=== PATIENT | female | born 1990 | race Caucasian/White ===

== ENCOUNTER 2017-06-14 13:52 | Emergency (ER) | payer BC ==
[~2017-06-14] VITALS: Ht 162.6 cm; Wt 72.3 kg
[~2017-06-14 13:52] MED LIST: AZO; BACTRIM 400 MG-1 TAB PO; LEVAQUIN 5500 MG/TAB PO; PYRIDIUM 100MG100 MG PO
[2017-06-14 13:56] VITALS: TEMP 98.8
[2017-06-14 14:42] LABS: BASO # 0.1 (0.0-0.2); BASO % 0.6 % (0.0-2.0); EOS # 0.1 (0.0-0.7); EOS % 1.4 % (0-4.0); GRAN # 6.1 (1.4-6.5); GRAN % 73.5 % (42.2-75.2); HEMATOCRIT 40.3 % (37.0-47.0); HEMOGLOBIN 13.3 g/dl (12.5-16.0); LYMPH # 1.5 (1.2-3.4); LYMPH % 18.3 % (20.0-51.0); MEAN CELL VOLUME 89 fl (80.0-100.0); MEAN CORPUSCULAR HEMOGLOBIN 29 pg (27.0-31.0); MEAN CORPUSCULAR HGB CONC 33 g/dl (33.0-37.0); MEAN PLATELET VOLUME 9.9 fl (7.4-10.4); MONO # 0.5 (0.1-0.6); MONO % 5.8 % (1.7-9.3); PLATELET COUNT 186 K/mm3 (130-400); RED BLOOD COUNT 4.54 M/mm3 (4.10-5.30); REDCELL DISTRIBUTION WIDTH-CV 12.4 % (11.5-14.5)
[2017-06-14 15:00] LABS: ALBUMIN 4.8 gm/dL (3.5-5.0); BILIRUBIN,TOTAL 0.3 mg/dL (0.0-1.0); CALCIUM 9.7 mg/dL (8.4-10.2); CREATININE, serum 0.72 mg/dL (0.52-1.25); POTASSIUM 3.8 mmol/L (3.4-5.0); TOTAL PROTEIN 7.9 gm/dL (6.4-8.2)
[2017-06-14 18:20] VITALS: BP 134/64; PULSE 79
== END 2017-06-14 18:30 | disposition home or self-care (01) ==
LOC: COL.ER 13:52
PROVIDERS: Physician Assistant
DX: O20.0 Threatened abortion (principal); Z3A.01 Less than 8 weeks gestation of pregnancy
CPT/HCPCS: J2791

== ENCOUNTER 2020-10-31 05:40 | Inpatient (IN) | payer BC ==
[2020-10-31] VITALS (41 sets, daily range): BP systolic 87–149; BP diastolic 43–98; PULSE 70–110; TEMP 97.5–98.9
[~2020-10-31] VITALS: Ht 165.1 cm; Wt 98.2 kg
[2020-10-31] MEDS ORDERED: PROAIR HFA0.09 MG/AC IH (05:59)
[2020-10-31] MEDS ORDERED: PRENATAL TABLET PO (06:00)
--- NOTE | 2020-10-31 06:31 | NUR ---
Note upon initial entrance to room, patient lying flat on back. Repositioned to left lateral, with explanation to patient et spouse of late decelerations, and importance of not laying flat on back. Verbalize understanding.
[2020-10-31 06:37] LABS: BASO % 0.4 % (0.0-2.0); EOS # 0.1 (0.0-0.7); EOS % 1.3 % (0-4.0); GRAN # 7.5 (1.4-6.5); GRAN % 78.6 % (42.2-75.2); HEMOGLOBIN 12.3 g/dl (12.5-16.0); LYMPH # 1.2 (1.2-3.4); LYMPH % 12.1 % (20.0-51.0); MEAN CELL VOLUME 90 fl (80.0-100.0); MEAN CORPUSCULAR HEMOGLOBIN 31 pg (27.0-31.0); MEAN CORPUSCULAR HGB CONC 34 g/dl (33.0-37.0); MONO # 0.6 (0.1-0.6); MONO % 6.6 % (1.7-9.3); PLATELET COUNT 151 K/mm3 (130-400); RED BLOOD COUNT 3.99 M/mm3 (4.10-5.30); REDCELL DISTRIBUTION WIDTH-CV 13.2 % (11.5-14.5)
--- NOTE | 2020-10-31 07:15 | NUR ---
Pit start @ 2mU/min per physician's verbal order.
--- NOTE | 2020-10-31 08:45 | NUR ---
EFM TRACING MATERNAL HEART RATE FROM 0842 TO 0845 WHILE PATIENT SITTING UP AT EDGE OF BED FOR EPIDURAL PLACEMENT
--- NOTE | 2020-10-31 10:15 | NUR ---
Repositioned to left lateral with peanut ball, after round of late decelerations. Note hypotensive in comparison to pre-epidural. Ephedrine 10mg IVP administered. See e-MAR for time details.
--- NOTE | 2020-10-31 10:45 | NUR ---
Repositioned to sitting upright in naveed position.
--- NOTE | 2020-10-31 11:40 | NUR ---
Report from Barbara Ramirez RN and care of patient assumed.
--- NOTE | 2020-10-31 12:00 | NUR ---
Dr. Plascencia at bedside. SVE unchanged. Decision to continue repositioning. 1203- Patient repositioned LL with peanut ball. Prolonged FHR deceleration noted following repositioning, patient repositioned RL and FHR recovers. Physician remains on unit. Peanut ball replaced.
--- NOTE | 2020-10-31 13:00 | NUR ---
Dr. Plascencia at bedside. SVE unchanged. Discussing plan of care, decision for section. Pitocin discontinued and patient prepped for surgery. Abdominal shave and prep completed per protocol. 1309- Patient taken off EFM and taken to OR. See intraoperative report.
[2020-10-31] MEDS ORDERED: MOTRIN 800800 MG/TAB PO (18:07)
[2020-10-31] MEDS ORDERED: PERCOCET 325 MG1 TA2 PO (18:07)
[2020-11-01 00:35] VITALS: BP 134/88; PULSE 86; TEMP 98
[2020-11-01 09:50] VITALS: BP 131/80; PULSE 93; TEMP 97.8
--- NOTE | 2020-11-01 09:50 | NUR ---
Requests to take a shower. Bathroom set up with instruction to sit on bench while in shower until it is time to rinse off, as lightheadedness is common first time in shower. Discussed emergency pull cord. Verbalizes understanding. Instruction to saturate dressing completely before beginning to remove. Verbalizes understanding.
[2020-11-01 13:00] VITALS: BP 132/80; PULSE 99; TEMP 98.4
[2020-11-01 17:35] VITALS: BP 129/83; PULSE 82; TEMP 98.4
--- NOTE | 2020-11-01 18:35 | NUR ---
Report recieved. Just finished feeding infant. Plans to walk in the halls. Updated whiteboard and reviewed POC. Questions invited and answered.
[2020-11-01 20:30] VITALS: BP 128/86; PULSE 91; TEMP 98.5
[2020-11-02 07:11] VITALS: BP 126/71; PULSE 87; TEMP 98.2
[2020-11-02] MEDS ORDERED: MOTRIN 800800 MG/TAB PO (09:07)
[2020-11-02] MEDS ORDERED: PERCOCET 325 MG1 TA2 PO (09:07)
== END 2020-11-02 11:05 | disposition home or self-care (01) | DRG 788 ==
LOC: LDRO 05:40 → LDR 06:06 → OB 14:34
PROVIDERS: Obstetrics & Gynecology; ADMIT Obstetrics & Gynecology
PROC: 10D00Z1 Extraction of Products of Conception, Low, Open Approach (ICD-10-PCS; principal; 2020-10-31)
DX: O62.1 Secondary uterine inertia (principal); O99.284 Endocrine, nutritional and metabolic diseases complicating childbirth; O99.824 Streptococcus B carrier state complicating childbirth; O99.52 Diseases of the respiratory system complicating childbirth; O48.0 Post-term pregnancy; E28.2 Polycystic ovarian syndrome; Z3A.40 40 weeks gestation of pregnancy; Z37.0 Single live birth; J45.909 Unspecified asthma, uncomplicated; O26.893 Other specified pregnancy related conditions, third trimester; Z67.11 Type A blood, Rh negative
CPT/HCPCS: J0690; J1885; J2540; J2590; J7120